=== PATIENT | male | born 1955 | race Caucasian/White ===

== ENCOUNTER → 2020-07-31 14:58 | Outpatient (BNVA) | payer BC, SELFPAY | PROVIDERS: Family Provider Family Medicine; PCP Family Medicine; Visit Provider Urology | DX: N40.1 Benign prostatic hyperplasia with lower urinary tract symptoms (principal); N13.8 Other obstructive and reflux uropathy | CPT/HCPCS: 81003; G0103 ==

== ENCOUNTER → 2021-03-14 13:07 | Outpatient (BNVA) | payer BC, SELFPAY | PROVIDERS: Family Provider Family Medicine; PCP Family Medicine; Visit Provider Nurse Practitioner Family | DX: N40.1 Benign prostatic hyperplasia with lower urinary tract symptoms (principal); N13.8 Other obstructive and reflux uropathy; N41.9 Inflammatory disease of prostate, unspecified; N41.1 Chronic prostatitis | CPT/HCPCS: 81003 ==

== ENCOUNTER → 2021-04-11 08:03 | Outpatient (BNVA) | payer BC, SELFPAY | PROVIDERS: Family Provider Family Medicine; PCP Family Medicine; Visit Provider Urology | DX: N40.1 Benign prostatic hyperplasia with lower urinary tract symptoms (principal); N13.8 Other obstructive and reflux uropathy | CPT/HCPCS: 81003 ==

== ENCOUNTER → 2021-07-30 14:45 | Outpatient (BNVA) | payer BC, SELFPAY | PROVIDERS: Family Provider Family Medicine; PCP Family Medicine; Visit Provider Urology | DX: N13.8 Other obstructive and reflux uropathy (principal); N40.1 Benign prostatic hyperplasia with lower urinary tract symptoms | CPT/HCPCS: 81003; G0103 ==

== ENCOUNTER → 2022-01-28 15:43 | Outpatient (BNVA) | payer BC, SELFPAY | PROVIDERS: Family Provider Family Medicine; PCP Family Medicine; Visit Provider Urology | DX: N41.9 Inflammatory disease of prostate, unspecified (principal); N40.1 Benign prostatic hyperplasia with lower urinary tract symptoms; N13.8 Other obstructive and reflux uropathy; N41.1 Chronic prostatitis | CPT/HCPCS: 81003 ==

== ENCOUNTER → 2022-08-25 09:56 | Outpatient (BNVA) | payer BC, SELFPAY | PROVIDERS: Family Provider Family Medicine; PCP Family Medicine; Visit Provider Student in an Organized Health Care Education/Training Program | DX: M65.311 Trigger thumb, right thumb (principal) | CPT/HCPCS: 73130 ==

== ENCOUNTER 2022-09-01 10:35 | Day surgery (SDC) | payer BC, SELFPAY ==
[2022-08-29 11:48] VITALS: BMI 29.8
[2022-09-01] VITALS (7 sets, daily range): BP systolic 106–162; BP diastolic 74–109; PULSE 55–76; RESP 15–19; TEMP 36.1–36.4; O2SAT 91–96
[2022-09-01] MEDS: sodium chloride 0.9% 1,000 ML 30 ML IV (11:08)
--- NOTE | 2022-09-01 11:28 | W.PM.OPSUD ---
Surgery/Procedure H&P Update DATE OF PROCEDURE: September 01, 2022 DATE H&P PERFORMED: 08/25/22 CHANGES TO PREVIOUS DOCUMENTATION: None PREOP DIAGNOSIS: Right Thumb Trigger PRIMARY INDICATION FOR PROCEDURE: Right Thumb Trigger PLANNED PROCEDURE: Operation Date: 09/01/22 12:10 Proposed Procedures p trigger finger release [id number] ,M65.311(Right) - Martín Milian DO
[2022-09-01] MEDS: ceFAZolin 2,000 MG in sodium chloride 0.9% (plus) 50 ML 100 MG IV (11:50)
--- NOTE | 2022-09-01 12:31 | P.OP_ITS ---
Brief Operative Note Date of procedure: 09/01/22 Pre-op diagnosis: Right thumb trigger Post-op diagnosis: same Procedure Done: Right thumb trigger release Surgeon: Martín Milian Estimated blood loss (mL): 2 Complications: None Post-op Plan: Patient taken back in stable condition recovering well. Patient received appropriate discharge instruction as well as pain medication postoperatively. Patient will follow-up with me in the office in 2 weeks. Patient understands any questions or concerns and contact the office. Condition: stable Disposition: same day Coding Level of Care Code Acute Academic Records Specialist for Perry Willis
--- NOTE | 2022-09-01 12:32 | PM.PACU ---
PACU note Narrative: Patient taken back in stable condition recovering well. Dressing on in place clean dry and intact. Patient is able to wiggle thumb. Decreased sensation secondary to local anesthesia. Fingertip warm well perfused. Exam: awake Disposition: discharged
--- NOTE | 2022-09-01 12:33 | PM.OP ---
Operative Report Date of procedure: September 01, 2022 Pre-op diagnosis: Preop Diagnosis Right Thumb Trigger Post-op diagnosis: Same Procedure done: Right thumb trigger finger release Right FPL tendon tenosynovectomy Surgeon: Martín Milian DO Estimated blood loss: 2 mL 8 minutes IV fluids: See anesthesia record Complications: None Findings: See operative report narrative Condition: stable Disposition: same day Brief History: Patient seen and evaluated outpatient setting findings consistent with preoperative diagnosis of right thumb trigger. Patient treated this conservatively and this is continued to worsen he has severe pain and lacking range of motion. He mechanically locks and catches. Through shared decision making he was offered continued nonoperative treatment and injection versus surgical intervention through shared decision making given his severe pain and lack of motion and mechanical triggering elects to proceed with surgical intervention of a right thumb trigger release. He understands the risk benefits complications and alternatives to surgical treatment options. He understands risks and agrees to proceed with surgery. All questions answered. Procedure: Patient was seen evaluate in the preoperative holding area. Consent was reviewed and signed with patient. Correct extremity was then marked. Patient was seen evaluated by the anesthesia department. Once cleared for surgery was then taken back to the operative suite. Was transported onto the OR table safely and all bony prominences well-padded patient was appropriately secured to the bed. Patient right upper extremities placed on an armboard. Nonsterile tourniquet applied to right upper arm. Patient then underwent anesthesia per the anesthesia department. Final timeout performed. Patient received appropriate preoperative antibiotics. Patient then underwent local anesthesia to the right thumb under sterile aseptic technique. The right upper extremity was then prepped and draped in standard orthopedic fashion. I then utilized an Esmarch tourniquet to exsanguinate the right upper extremity and tourniquet was insufflated to 250 mmHg. A standard transverse incision was made within the flexor crease centered over the A1 kenny. Sharp scalpel incision was made only through skin. I then switched to Littler dissection scissors and dissected out the digital nerves which were then protected with a Kasdan retractors. Patient had thickened scar tissue over the A1 kenny. Patient had excessive amount of synovial fluid once I used a 15 blade to incise the A1 kenny. Large amount of synovial fluid came out that appeared clear with no signs of infection. I then utilized dissection scissors to complete my release of the A1 kenny distally. Up to the oblique ligament. Next I then released the proximal portion of the A1 kenny to its entirety and mobilized the FPL tendon out of the sheath and there is no triggering or catching noted patient had significant improvement in range of motion. The FPL tendon did have some fraying noted but no complete tear. There was significant tenosynovitis and inflamed tissue circumferentially around the FPL tendon which a tenosynovectomy was then performed of the FPL tendon with rongeur. Once again a rag nail was inserted and the tendon was delivered out of the wound with no triggering or catching. This point in time I then range the thumb and he regained full range of motion without triggering or catching. Tourniquet was deflated. Wound bed was thoroughly irrigated hemostasis satisfactory with bipolar electrocautery. Incision was then closed with interrupted 4 oh mattress stitches. Xeroform 4 x 4's fluffs Curlex and Erik wrap were then applied to the right hand. Patient was then awakened from anesthesia and taken to PACU in stable condition. Patient tolerated procedure without complications. Disposition: Patient taken to PACU in stable condition tolerated procedure without any issues. Dressing on in place to receive appropriate discharge structure as well as pain medication postoperatively. He will see me in office in 2 weeks. Patient understands for any questions or concerns and contact the office.
--- NOTE | 2022-09-01 12:38 | P.ANESASSM_ITS ---
Pre-Anesthetic Assessment Height/Weight: Height 1.83 m Weight 99.79 kg Temp Pulse Resp BP Pulse Ox O2 Del Method O2 Flow Rate 97.2 F L 68 18 162/109 96 8 09/01/22 11:07 09/01/22 11:07 09/01/22 11:07 09/01/22 11:07 09/01/22 11:07 09/01/22 11:07 09/01/22 12:34 Preop Diagnosis: Right Thumb Trigger Operation Date: 09/01/22 12:10 Proposed Procedures p trigger finger release [id number] ,M65.311(Right) - Martín Maicol, Familial anesthetic complications: none Was Beta Giancarlo taken within 24 hours: Yes Was Clonidine taken within 24 hours: Yes Last intake: Intake Last Liquid Date 08/31/22 Last Liquid Time 22:00 Last Solid Date 08/31/22 Last Solid Time 22:00 Social No alcohol and No tobacco Exam alert, oriented x 3, clear to auscultation bilaterally and regular rate & rhythm Airway Submandibular: within normal limits Cervical ROM: within normal limits Mallampati: Class II Dentition: chipped CV/HEM Hypertension Neuropsych Anxiety Anesthetic Plan ASA status: 2 Anesthesia: MAC Medications/Allergies Home Medications Medication Instructions Recorded Confirmed Last Taken Type buspirone 10 mg tablet 10 mg PO BID anxiety 07/31/20 09/01/22 07/15/22 History omeprazole 20 mg capsule,delayed 20 mg PO DAILY 07/31/20 08/29/22 09/01/22 History release lisinopril 10 mg tablet 10 mg PO DAILY 03/14/21 08/29/22 08/31/22 History clonidine HCl 0.1 mg tablet 0.1 mg PO BID PRN high blood 07/30/21 09/01/22 06/14/22 History pressure alprazolam 0.25 mg tablet 0.125 mg PO DAILY PRN Anxiety 01/28/22 09/01/22 05/15/22 History propranolol 60 mg capsule,24 60 mg PO DAILY 01/28/22 08/29/22 09/01/22 History hr,extended release tamsulosin 0.4 mg capsule 0.4 mg PO BID 08/29/22 08/29/22 09/01/22 History Allergies Allergy/AdvReac Type Severity Reaction Status Date / Time celecoxib [From Celebrex] Allergy panic Verified 09/01/22 10:46 attack ciprofloxacin [From Cipro] Allergy unknown Verified 09/01/22 10:46 codeine Allergy unknown Verified 09/01/22 10:46 hydrocodone Allergy panic Verified 09/01/22 10:46 attack Current Medications Generic Name Dose Route Start Last Admin Trade Name Freq PRN Reason Stop Dose Admin Sodium Chloride 1,000 mls @ 30 mls/hr 09/01/22 10:45 09/01/22 11:08 Sodium Chloride 0.9% IV 09/02/22 10:44 30 mls/hr .Q24H HANNA Administration PFSH Anesthesia Medical History (Updated 08/28/22 @ 06:28 by Martín Milian DO) BPH w urinary obs/LUTS Prostatitis Trigger thumb, right thumb Surgical History History of left knee replacement Hx of appendectomy Hx of cholecystectomy Hx of umbilical hernia repair Family History Father , AT AGE 84 CAD (coronary artery disease) Diabetes Mother , at age 83 No problems noted. 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
--- NOTE | 2022-09-01 12:41 | SUR.PHASEI ---
1230 PT TO PACU 5 AWAKES TO VOICE, RT HAND PINK WARM WITH CAP REFILL LESS THAN 3 SECONDS HAND ELEVATED ON BLANKETS. IV TO LEFT HAND #20 WITH 700ML NS AT KVO RATE PER GRAVITY. ID BRACELET TO LT WRIST, PT ID'D WITH 2 IDENTIFIERS, MONITOR SR TO SB WITH NO ECTOPY, . VSS.
--- NOTE | 2022-09-01 15:53 | ANE.PACU2 ---
Inpatient post-anesthesia follow up: Airway intact: Yes Vital signs: Temperature 97.2 F Pulse Rate 59 Respiratory Rate 18 Blood Pressure 137/96 Pulse Oximetry 94 Oxygen Delivery Me thod Room Air Oxygen Flow Rate 8 Fraction of Inspir ed Oxygen Hydration adequate: Yes Nausea and vomiting: No Pain level: 1 Mental status: Baseline
== END 2022-09-01 13:24 | disposition home or self-care (01) ==
PROVIDERS: PCP Family Medicine; Visit Provider Student in an Organized Health Care Education/Training Program
PROC: (CPT 26055; principal; 2022-09-01 12:00)
DX: M65.311 Trigger thumb, right thumb (principal); N40.1 Benign prostatic hyperplasia with lower urinary tract symptoms; N13.8 Other obstructive and reflux uropathy; Z87.891 Personal history of nicotine dependence
CPT/HCPCS: 26055; 26145; J0690; J2704; J2795; J3490; J7030

== ENCOUNTER → 2022-09-17 10:09 | Outpatient (BNVA) | payer BC, SELFPAY | PROVIDERS: PCP Family Medicine; Visit Provider Student in an Organized Health Care Education/Training Program | DX: M18.12 Unilateral primary osteoarthritis of first carpometacarpal joint, left hand (principal); M65.311 Trigger thumb, right thumb | CPT/HCPCS: 73130 ==

== ENCOUNTER → 2025-05-10 15:08 | Outpatient (BNVA) | payer MEDICARE, SELFPAY | PROVIDERS: PCP Family Medicine; Visit Provider Dermatology | DX: L72.0 Epidermal cyst (principal); L57.8 Other skin changes due to chronic exposure to nonionizing radiation; L81.4 Other melanin hyperpigmentation; L73.8 Other specified follicular disorders; D22.5 Melanocytic nevi of trunk; L82.1 Other seborrheic keratosis; B07.8 Other viral warts; L53.8 Other specified erythematous conditions; R58 Hemorrhage, not elsewhere classified; L29.89 Other pruritus; D48.5 Neoplasm of uncertain behavior of skin; L57.0 Actinic keratosis | CPT/HCPCS: 11102; 17000; 17110; 99203 ==

== ENCOUNTER → 2025-06-05 12:49 | Outpatient (BNVA) | payer MEDICARE, SELFPAY | PROVIDERS: PCP Family Medicine; Visit Provider Dermatology | DX: C44.41 Basal cell carcinoma of skin of scalp and neck (principal) | CPT/HCPCS: 12032; 17311 ==

== ENCOUNTER → 2025-06-12 14:42 | Outpatient (BNVA) | payer MEDICARE, SELFPAY | PROVIDERS: PCP Family Medicine; Visit Provider Dermatology | DX: L23.9 Allergic contact dermatitis, unspecified cause (principal) | CPT/HCPCS: 99213 ==

== ENCOUNTER → 2025-08-30 10:00 | Outpatient (BNVA) | payer MEDICARE, SELFPAY | PROVIDERS: PCP Family Medicine; Visit Provider Dermatology | DX: L23.9 Allergic contact dermatitis, unspecified cause (principal); B07.8 Other viral warts; L30.8 Other specified dermatitis; Z08 Encounter for follow-up examination after completed treatment for malignant neoplasm; Z85.828 Personal history of other malignant neoplasm of skin | CPT/HCPCS: 99213 ==